=== PATIENT | female | born 1980 | race Caucasian/White ===

== ENCOUNTER 2017-04-21 18:32 | Emergency (ER) | payer MEDICAID, MEDICARE ==
--- NOTE | 2017-04-21 18:58 | ED Physician Chart ---
Chief Complaint/HPI - Patient Information Date Seen:: 04/21/17 Time Seen:: 18:47 Chief Complaint:: etoh intox History of Present Illness:: pt called ems from her hotel 8 room and requested help because she drank too much vodka today. she is alert and walking and talking coherently in ED. on arrival LO Ezequiel found her outside calling a [employer] Ride just after having completed triage. pt lives in [place]...she sasys she is in town here because she just released herself from a [facility]TOH Treatement facility 5 days ago. has a hx of etoh- ism. chronic pain at b hips is unchanged. pt says she has no family nearby who can pick her up. no n/v/d. Allergies:: Allergies Allergy/AdvReac Type Severity Reaction Status Date / Time No Known Allergies Allergy Verified 04/21/17 18:37 Vitals:: Vital Signs - 8 hr 04/21/17 18:37 Temp 98.6 F HR 90 RR 18 BP 124/72 O2 Sat % 97 Historian:: Patient Review of Systems - Review of Systems General/Constitutional: No fever, No chills, No weight loss, No weakness, No diaphoresis, No edema, No loss of appetite Skin: No skin lesions, No rash, No bruising Head: No headache, No light-headedness Eyes: No loss of vision, No pain, No diplopia ENT: No earache, No nasal drainage, No sore throat, No tinnitus Neck: No neck pain, No swelling, No thyromegaly, No stiffness, No mass noted Cardio Vascular: No chest pain, No palpitations, No PND, No orthopnea, No edema Pulmonary: No SOB, No cough, No sputum, No wheezing GI: No nausea, No vomiting, No diarrhea, No pain, No melena, No hematochezia, No constipation, No hematemesis G/U: No dysuria, No frequency, No hematuria Musculoskeletal: No bone or joint pain, No back pain, No muscle pain Endocrine: No polyuria, No polydipsia Psychiatric: No prior psych history, No depression, No anxiety, No suicidal ideation Hematopoietic: No bruising, No lymphadenopathy Allergic/Immuno: No urticaria, No angioedema Neurological: No syncope, No focal symptoms, No weakness, No paresthesia, No headache, No seizure, No dizziness, No confusion, No vertigo Past Medical History - Past Medical History Past Medical History: Other (chronic pain/ avn b hips //etohic) Social History: Alcohol Surgical History: other (rt hip replaced 2013) Medication: Reviewed (elavil, trentolix(?sp), pt vehemently denies any narcotic hx) Family Medical History - Family Member Mother Hx Family Cancer: No Hx Family Coronary Artery Disease: No Hx Family Congestive Heart Failure: No Hx Family Hypertension: No Hx Family Stroke: No Hx Family Diabetes: No Hx Family Seizures: No Hx Family Dementia: No Hx Family AIDS: No Hx Family HIV: No Hx Family Psychiatric Problems: No Physical Exam - Physical Examination General/Constitutional: Awake, Well-developed, well-nourished, Alert, No distress, GCS 15, Non-toxic appearing, Ambulatory Other Gen/Cons comments:: pt alert and ambulates wo obvious discomfort or instability. pt has sltly slurred speech and somewhat reduced inhibitions. Head: Atraumatic Eyes: Lids, conjuctiva normal, PERRL, EOMI Skin: Nl inspection, No rash, No skin lesions, No ecchymosis, Well hydrated, No lymphadenopathy ENMT: External ears, nose nl, Nasal exam nl, Lips, teeth, gums nl Neck: Nontender, Full ROM w/o pain, No JVD, No nuchal rigidity, No bruit, No mass, No stridor Respiratory: Nl effort/Exclusion, Clear to Auscultation, No Wheeze/Rhonchi/Rales Cardio Vascular: RRR, No murmur, gallop, rubs, NL S1 S2 GI: No tenderness/rebounding/guarding, No organomegaly, No hernia, Normal BS's, Nondistended, No mass/bruits, No McBurney tenderness : No CVA tenderness Extremities: No tenderness or effusion, Full ROM, normal strength in all extremities, No edema, Normal digits & nails Neuro/Psych: Alert/oriented, DTR's symmetric, Normal sensory exam, Normal motor strength, Judgement/insight normal, Mood normal, Normal gait, No focal deficits Misc: normal gait, Normal back, No paraspinal tenderness Labs/Radiology/EKG Results - Lab Results Results: Laboratory Tests 04/21/17 04/21/17 19:30 19:53 Sodium 136 Potassium 3.8 Chloride 101 Carbon Dioxide 19.1 L Anion Gap 19.7 H BUN 15 Creatinine 0.6 Est GFR ( Amer) > 60.0 Est GFR (Non-Af Amer) > 60.0 BUN/Creatinine Ratio 25.0 Glucose 105 Calcium 9.2 Total Bilirubin 0.5 AST 56 H ALT 53 H Alkaline Phosphatase 78 Total Protein 8.0 Albumin 4.8 Globulin 3.2 Albumin/Globulin Ratio 1.5 Urine Opiates Screen NEGATIVE Urine Methadone Screen NEGATIVE Ur Barbiturates Screen NEGATIVE Ur Tricyclics Screen NEGATIVE Ur Phencyclidine Scrn NEGATIVE Amphetamines Screen NEGATIVE U Methamphetamines Scrn NEGATIVE U Benzodiazepines Scrn POSITIVE H U Cocaine Metab Screen NEGATIVE U Cannabinoids Screen NEGATIVE Ethyl Alcohol 385 H ED Septic Shock - . Is Septic Shock (SBP<90, OR Lactate>4 mmol\L) present?: No - <6hrs of presentation: Vital Signs: Vital Signs - 8 hr 04/21/17 18:37 Temp 98.6 F HR 90 RR 18 BP 124/72 O2 Sat % 97 Reassessment (Disposition) - Reassessment Reassessment:: 9;00pm // pt has been taking po fluids well. she is ambulatory and has mult times attempts to call [employer] or lyft and been found outside waiting for ride. staff informed pt not to leave and have attained a sitter to watch pt. ..pt again called a [employer] courtesy van driver and was attempting to leave ED. 3rd attempt. explained again to pt that she is legally intoxicated and we would call police is she tries to leave. pt is ambulatory without any instability and appears cogent but makes no sense when in perspective of her call to ems a short time earlier.. she agrees to stay if I will give her a IV fluid..despite she is taking po fluids well. explained to pt that freq iv sticks are not in her best health interest for residential venous health but she is adamant and unconcerned. - Diagnosis Diagnosis:: etoh intoxication
[2017-04-21 20:02] LABS: % BASOPHILS 0.8 % (0.0-2.0); % EOSINOPHILS 0.9 % (0.0-5.0); % LYMPHOCYTES 32.1 % (20.0-50.0); % MONOCYTES 9.1 % (2.0-10.0); % NEUTROPHILS 57.1 % (40.0-80.0); HEMATOCRIT 46.6 % (35.0-45.0); HEMOGLOBIN 15.7 gm/dL (11.7-15.5); MEAN CELL VOLUME 84.1 fl (81-100); MEAN CORPUSCULAR HEMOGLOBIN 28.3 pg (27.0-31.0); MEAN CORPUSCULAR HGB CONC 33.7 pg (28.0-36.0); MEAN PLATELET VOLUME 7.8 fl; NEUTROPHILE ABSOLUTE 6.3 Th/cmm (1.8-8.0); PLATELET COUNT 413 Th/cmm (150-400); RED BLOOD COUNT 5.54 Mil/cmm (3.80-5.10); RED CELL DISTRIBUTION WIDTH 14.7 % (11.5-20.0)
[2017-04-21 20:15] LABS: ALB/GLOB RATIO 1.5 (1.0-1.8); ALKALINE PHOSPHATASE 78 U/L (34-104); ANION GAP 19.7 (7.0-16.0); BILIRUBIN,TOTAL 0.5 mg/dL (0.3-1.0); BUN - UREA NITROGEN 15 mg/dL (7-25); CALCIUM SERUM 9.2 mg/dL (8.6-10.3); CARBON DIOXIDE 19.1 mEq/L (21.0-31.0); CHLORIDE 101 mEq/L (98-107); CREATININE - SERUM 0.6 mg/dL (0.6-1.2); GLUCOSE 105 mg/dL (70-105); POTASSIUM SERUM 3.8 mEq/L (3.5-5.1); SGOT 56 U/L (13-39); SGPT/ALT 53 U/L (7-52); SODIUM SERUM 136 mEq/L (136-145)
[2017-04-21 20:20] LABS: URINE BILIRUBIN NEGATIVE (NEGATIVE); URINE BLOOD MODERATE (NEGATIVE); URINE GLUCOSE (UA) NEGATIVE (NEGATIVE); URINE KETONE TRACE mg/dL (NEGATIVE); URINE PROTEIN >=300 mg/dL (NEGATIVE); URINE UROBILINOGEN 0.2 E.U./dL (0.2 - 1.0)
[2017-04-21 20:31] LABS: AMPHETAMINE URINE NEGATIVE (NEGATIVE); BARBITURATES URINE NEGATIVE (NEGATIVE); METHADONE URINE NEGATIVE (NEGATIVE)
[2017-04-21 21:01] LABS: URINE COLOR YELLOW
[2017-04-21 21:02] LABS: URINE BACTERIA NONE SEEN /hpf (NONE SEEN); URINE EPITHELIAL CELLS FEW /lpf (FEW); URINE WBC NONE SEEN /hpf (0-5)
[2017-04-21] MEDS ORDERED: Multivitamin Inj 10 ML, Thiamine HCL 100 MG, Magnesium Sulfate 2 GM, Folic Acid 1 MG in... IV ONE (21:24)
[2017-04-21] MEDS ORDERED: Sodium Chloride 0.9% 1,000 ML IV ONE (21:24)
[2017-04-21] MEDS ORDERED: Thiamine 100 mg/mL 2mL Vial ONE (22:10)
[2017-04-21] MEDS ORDERED: Magnesium Sulfate 1 gm/2 mL 2mL Vial IV ONE (22:11)
[2017-04-21] MEDS ORDERED: Multivitamin Inj 10 mL Vial IV ONE (22:12)
== END 2017-04-22 01:01 | disposition home or self-care (01) ==
LOC: ER 18:32
DX: F10.129 Alcohol abuse with intoxication, unspecified (principal)
CPT/HCPCS: 99285; 96365; 96366; 96375; 36415; 80307; 85025; 81001; 80320; 80053; J2060; J3411; J2405; J3475; J7030; X6226; X6598